=== PATIENT | female | born 1960 | race African-American/Black ===

== ENCOUNTER 2017-07-02 03:56 | Emergency (ER) | payer OTHER ==
--- NOTE | 2017-07-02 04:50 | PDOC ---
*Physical Exam - Vital Signs Last Vital Signs Temp Pulse Resp BP Pulse Ox 98.1 F 70 14 122/72 100 07/02/17 04:08 07/02/17 04:08 07/02/17 04:08 07/02/17 04:08 07/02/17 04:08 Medical Decision Making - Medical Decision Making 07/02/17 04:50 agree with care from GUSTABO Lara *DC/Admit/Observation/Transfer Diagnosis at time of Disposition: Pain, dental - Prescriptions Prescriptions: Diphenhydramine HCl [Benadryl -] 25 mg PO Q6H PRN #28 capsule PRN Reason: For Itching Oxycodone HCl/Acetaminophen [Percocet 5-325 mg Tablet] 1 tab PO Q12H PRN #8 tablet MDD 2 PRN Reason: Pain - Patient Instructions Printed Discharge Instructions: DI for Dental Pain Additional Instructions: Please take medication as prescribed. Do not drive or operate machinery while taking Percocet. Follow up with your dentist as planned. If you experience any fever, nausea, vomiting, diarrhea, or any new or worsening symptoms, please return to the ER.
--- NOTE | 2017-07-02 04:57 | PDOC ---
History of Present Illness - General Chief Complaint: Hives Stated Complaint: RASH Time Seen by Provider: 07/02/17 04:11 - History of Present Illness Initial Comments: 07/02/17 05:07 CHIEF COMPLAINT: tooth pain HISTORY OF PRESENT ILLNESS: 56 yo F with hx of aortic valve replacement, open heart surgery, and HTN presents to ED with tooth pain. Patient reports she was given Augmentin by her PCP two days ago for her tooth pain but it has provided no relief. She reports that after approximately 10 minutes using Orajel she noticed "a rash" that developed on her L shoulder. No recent travel or sick contacts. PAST MEDICAL HISTORY: Denies past medical history FAMILY HISTORY: Denies SOCIAL HISTORY: Denies tobacco, alcohol, illicit drug use. SURGICAL HISTORY: Denies ALLERGIES: No known drug allergies REVIEW OF SYSTEMS General/Constitutional: Denies fever or chills. Denies weakness, weight change. HEENT: Tooth pain to R teeth, uncertain if pain is to upper or lower molars. Denies change in vision. Denies ear pain or discharge. Denies sore throat. Cardiovascular: Denies chest pain or shortness of breath. Respiratory: Denies cough, wheezing, or hemoptysis. Gastrointestinal: Denies nausea, vomiting, diarrhea or constipation. Denies rectal bleeding. Genitourinary: Denies dysuria, frequency, or change in urination. Musculoskeletal: Denies joint or muscle swelling or pain. Denies neck or back pain. Skin and breasts: Denies rash or easy bruising. Neurologic: Denies headache, vertigo, loss of consciousness, or loss of sensation. PHYSICAL EXAM General Appearance: Well-appearing, appropriately dressed. No apparent distress. HEENT: No abscesses or dental caries visualized. EOMI, PERRLA, normal ENT inspection, normal voice, TMs normal, pharynx normal. No conjunctival pallor. No photophobia, scleral icterus. Respiratory/Chest: Lungs CTAB. No shortness of breath, chest tenderness, respiratory distress, accessory muscle use. No crackles, rales, rhonchi, stridor , wheezing, dullness Cardiovascular: RRR. S1, S2. Musculoskeletal/Extremities: Normal inspection. FROM of all extremities, normal capillary refill. Pelvis Stable. No CVA tenderness. No tenderness to extremities, pedal edema, swelling, erythema or deformity. Integumentary: Appropriate color, dry, warm. No cyanosis, erythema, jaundice or rash Neurologic: child support specialist II-XII intact. Fully oriented, alert. Appropriate mood/affect. Motor strength 5/5. No appreciable EOM palsy, facial droop or sensory deficit. Past History - Past Medical History Allergies/Adverse Reactions: Allergies Allergy/AdvReac Type Severity Reaction Status Date / Time No Known Allergies Allergy Verified 07/02/17 04:08 Home Medications: Ambulatory Orders Aspirin [Ecotrin] 81 mg PO DAILY 06/02/15 Metoprolol Tartrate [Lopressor -] 25 mg PO BID 06/02/15 Warfarin Na [Coumadin] 9.5 mg PO ASDIR 06/02/15 Warfarin Na [Coumadin] 10 mg PO ASDIR 06/02/15 Clindamycin HCl [Cleocin HCl] 300 mg PO Q8H 04/08/16 Clonazepam [Klonopin -] 0.5 mg PO BID 04/08/16 Duloxetine HCl [Cymbalta] 30 mg PO DAILY 04/08/16 Fluticasone Prop 0.05% Nasal [Flonase -] 1 - 2 spray NS DAILY 04/08/16 Loratadine [Claritin -] 10 mg PO DAILY 04/08/16 Oxycodone HCl/Acetaminophen [Percocet 5-325 mg Tablet] 1 - 2 tab PO Q6H PRN #12 tab MDD 6 04/08/16 Varenicline Tartrate [Chantix] 1 mg PO DAILY 04/08/16 Diphenhydramine HCl [Benadryl -] 25 mg PO Q6H PRN #28 capsule 07/02/17 Oxycodone HCl/Acetaminophen [Percocet 5-325 mg Tablet] 1 tab PO Q12H PRN #8 tablet MDD 2 07/02/17 Anemia: Yes Asthma: No Cancer: No Cardiac Disorders: Yes (rheumatic fever, aortic/mitral valve repla) CVA: No COPD: No CHF: No Dementia: No Diabetes: No GI Disorders: No Disorders: No HTN: No Hypercholesterolemia: No Liver Disease: No Psychiatric Problems: Yes (anxiety) Suicide Attempt (Hx): No Seizures: No Thyroid Disease: No - Surgical History Cardiac Surgery: Yes (03/29/14 aortic/mitral valve replacmement) - Immunization History Immunization Up to Date: Yes - Psycho/Social/Smoking Cessation Hx Anxiety: Yes Suicidal Ideation: No Smoking Status: Yes Smoking History: Never smoked Have you smoked in the past 12 months: Yes Number of Cigarettes Smoked Daily: 6 Information on smoking cessation initiated: No 'Breaking Loose' booklet given: 04/08/16 Hx Alcohol Use: No Drug/Substance Use Hx: No Substance Use Type: None Hx Substance Use Treatment: No *Physical Exam - Vital Signs Last Vital Signs Temp Pulse Resp BP Pulse Ox 98.1 F 70 14 122/72 100 07/02/17 04:08 07/02/17 04:08 07/02/17 04:08 07/02/17 04:08 07/02/17 04:08 Medical Decision Making - Medical Decision Making 07/02/17 05:18 56 yo F with hx of aortic valve replacement, open heart surgery, and HTN presents to ED with tooth pain. Inferior alveolar nerve block performed; patient expressed immediate relief. Benadryl, Percocet rx sent to pharm. Advised patient to f/u with dentist as planned; patient verbalized understanding and agrees to plan. *DC/Admit/Observation/Transfer Diagnosis at time of Disposition: Pain, dental - Discharge Dispostion Admit: No - Prescriptions Prescriptions: Diphenhydramine HCl [Benadryl -] 25 mg PO Q6H PRN #28 capsule PRN Reason: For Itching Oxycodone HCl/Acetaminophen [Percocet 5-325 mg Tablet] 1 tab PO Q12H PRN #8 tablet MDD 2 PRN Reason: Pain - Patient Instructions Printed Discharge Instructions: DI for Dental Pain Additional Instructions: Please take medication as prescribed. Do not drive or operate machinery while taking Percocet. Follow up with your dentist as planned. If you experience any fever, nausea, vomiting, diarrhea, or any new or worsening symptoms, please return to the ER.
[2017-07-02 05:07] VITALS: BP 122/72; PULSE 70; TEMP 98.1; BMI 24.1
== END 2017-07-02 05:52 | disposition home or self-care (01) ==
LOC: JER 03:56
DX: K08.89 Other specified disorders of teeth and supporting structures (principal); F41.9 Anxiety disorder, unspecified; D64.9 Anemia, unspecified; I51.9 Heart disease, unspecified
CPT/HCPCS: 99281-25

== ENCOUNTER 2017-07-21 15:49 | Emergency (ER) | payer OTHER ==
[2017-07-21 15:55] VITALS: BP 137/85; PULSE 74; TEMP 98.1; BMI 25.0
--- NOTE | 2017-07-21 16:37 | PDOC ---
History of Present Illness - General Chief Complaint: Revisit, Lab Variance Stated Complaint: PCP SENT/needs inr level Time Seen by Provider: 07/21/17 16:09 History Source: Patient - History of Present Illness Timing/Duration: other Past History - Past Medical History Allergies/Adverse Reactions: Allergies Allergy/AdvReac Type Severity Reaction Status Date / Time amoxicillin trihydrate Allergy Verified 07/21/17 15:52 [From Augmentin] potassium clavulanate Allergy Verified 07/21/17 15:52 [From Augmentin] Home Medications: Ambulatory Orders Aspirin [Ecotrin] 81 mg PO DAILY 06/02/15 Metoprolol Tartrate [Lopressor -] 25 mg PO BID 06/02/15 Warfarin Na [Coumadin] 9.5 mg PO ASDIR 06/02/15 Warfarin Na [Coumadin] 10 mg PO ASDIR 06/02/15 Clindamycin HCl [Cleocin HCl] 300 mg PO Q8H 04/08/16 Clonazepam [Klonopin -] 0.5 mg PO BID 04/08/16 Duloxetine HCl [Cymbalta] 30 mg PO DAILY 04/08/16 Fluticasone Prop 0.05% Nasal [Flonase -] 1 - 2 spray NS DAILY 04/08/16 Loratadine [Claritin -] 10 mg PO DAILY 04/08/16 Oxycodone HCl/Acetaminophen [Percocet 5-325 mg Tablet] 1 - 2 tab PO Q6H PRN #12 tab MDD 6 04/08/16 Varenicline Tartrate [Chantix] 1 mg PO DAILY 04/08/16 Diphenhydramine HCl [Benadryl -] 25 mg PO Q6H PRN #28 capsule 07/02/17 Oxycodone HCl/Acetaminophen [Percocet 5-325 mg Tablet] 1 tab PO Q12H PRN #8 tablet MDD 2 07/02/17 Anemia: Yes Asthma: No Cancer: No Cardiac Disorders: Yes (rheumatic fever, aortic/mitral valve repla) CVA: No COPD: No CHF: No Dementia: No Diabetes: No GI Disorders: No Disorders: No HTN: No Hypercholesterolemia: No Liver Disease: No Psychiatric Problems: Yes (anxiety) Suicide Attempt (Hx): No Seizures: No Thyroid Disease: No - Surgical History Cardiac Surgery: Yes (03/29/14 aortic/mitral valve replacmement) - Immunization History Immunization Up to Date: Yes - Psycho/Social/Smoking Cessation Hx Anxiety: No Suicidal Ideation: No Smoking Status: Yes Smoking History: Current every day smoker Have you smoked in the past 12 months: Yes Number of Cigarettes Smoked Daily: 5 Information on smoking cessation initiated: Yes 'Breaking Loose' booklet given: 07/21/17 Hx Alcohol Use: No Drug/Substance Use Hx: No Substance Use Type: None Hx Substance Use Treatment: No Review of Systems - Review of Systems Constitutional: No: Chills, Fever HEENTM: Yes: Other (no toothache today) *Physical Exam - Vital Signs Last Vital Signs Temp Pulse Resp BP Pulse Ox 98.1 F 74 18 137/85 100 07/21/17 15:53 07/21/17 15:53 07/21/17 15:53 07/21/17 15:53 07/21/17 15:53 - Physical Exam General Appearance: Yes: Appropriately Dressed. No: Apparent Distress HEENT: positive: Normal Voice Neck: positive: Supple Respiratory/Chest: negative: Respiratory Distress Integumentary: positive: Dry, Warm Neurologic: positive: Fully Oriented, Alert, Normal Mood/Affect Medical Decision Making - Medical Decision Making 07/21/17 16:13 56 yo F with hx of aortic valve replacement, open heart surgery, and HTN presents to ED for INR check. Pt was seen in ED 07/02/17 for toothache, now has dental extraction w/ dentist scheduled for and states she was referred to her PMD for INR check but states staff were unable to get blood in office today so referred pt to the ED. Of note, INR 3.5 (supposed to be 2.5-3.5 per pt) , 07/07/17 at [facility] after pt presented w/ L ankle swelling per pt. No acute complaints today See exam INR check prior to planned dental extraction No acute medical complaints -PT/INR pending 07/21/17 16:37 07/21/17 17:33 INR 3.41 which is therapeutic for pt (2.5-3.5). Pt stable for discharge to f/u with PMD and dentist tomorrow 17:38 *DC/Admit/Observation/Transfer Diagnosis at time of Disposition: Anticoagulation monitoring, INR range 2.5-3.5 - Discharge Dispostion Disposition: HOME Condition at time of disposition: Good - Referrals Referrals: Juan Cruz MD [Primary Care Provider] - - Patient Instructions Additional Instructions: Your INR was 3.41 today. Please contact your PMD tomorrow for clearance for dental procedure
[2017-07-21 16:59] LABS: INR 3.41 (0.82-1.09); PROTHROMBIN TIME (PATIENT) 38.5 SEC (9.98-11.88)
== END 2017-07-21 18:21 | disposition home or self-care (01) ==
LOC: JERFT 15:49
DX: D68.8 Other specified coagulation defects (principal); Z51.81 Encounter for therapeutic drug level monitoring; Z79.01 Long term (current) use of anticoagulants; Z95.4 Presence of other heart-valve replacement
CPT/HCPCS: 36415; 85610; 99281-25

== ENCOUNTER → 2018-02-15 | Day surgery (SDC) | payer OTHER | END | disposition home or self-care (01) | LOC: JRADUS-SUR 08:09 | PROVIDERS: ATTEND Family Medicine | PROC: 0HBT3ZX Excision of Right Breast, Percutaneous Approach, Diagnostic (ICD-10-PCS; principal; 2018-02-15) | DX: C50.911 Malignant neoplasm of unspecified site of right female breast (principal) | CPT/HCPCS: 19083; 77065-TC; 87899; 88305-TC; 88342-TC; A4648 ==

== ENCOUNTER 2018-02-18 17:34 | Emergency (ER) | payer OTHER ==
--- NOTE | 2018-02-18 17:57 | PDOC ---
Rapid Medical Evaluation Time Seen by Provider: 02/18/18 17:44 Medical Evaluation: Allergies Allergy/AdvReac Type Severity Reaction Status Date / Time amoxicillin trihydrate Allergy Verified 07/21/17 15:52 [From Augmentin] potassium clavulanate Allergy Verified 07/21/17 15:52 [From Augmentin] 02/18/18 17:55 The patient presents with a chief complaint of: Pt. had R breast bx on Thursday. States that its red and swollen, and slightly painful. Wanted the site to be checked. I have performed a brief in-person evaluation of this patient; Pertinent physical exam findings: ambulatory, in no respiratory distress, VSS I have ordered the following: Nothing The patient will proceed to the ED for further evaluation.
[2018-02-18 18:00] VITALS: BP 140/78; PULSE 92; TEMP 99.2; BMI 25.8
[2018-02-18 19:12] LABS: BASO % 0.7 % (0-2.0); EOS % 0.5 % (0-4.5); HEMATOCRIT 34.7 % (32.4-45.2); HEMOGLOBIN 11.2 GM/dL (10.7-15.3); LYMPH % 35.6 % (8-40); MCH 20.6 pg (25.7-33.7); MCHC 32.4 g/dl (32.0-36.0); MEAN CELL VOLUME 63.5 fl (80-96); MEAN PLT VOLUME 9.1 fl (7.5-11.1); MONO % 8.1 % (3.8-10.2); NEUT % 55.1 % (42.8-82.8); PLATELET COUNT 163 K/MM3 (134-434); RBC 5.46 M/mm3 (3.60-5.2); RDW 30.1 % (11.6-15.6); WHITE BLOOD COUNT 9.6 K/mm3 (4.0-10.0)
[2018-02-18 19:49] LABS: ADD RBC MORPHOLOGY YES
--- NOTE | 2018-02-18 20:22 | PDOC ---
History of Present Illness - General Chief Complaint: Pain Stated Complaint: RT BREAST SWELLING&PAIN/S/P BIOPSY Time Seen by Provider: 02/18/18 17:44 - History of Present Illness Initial Comments: 02/18/18 20:23 57 year old female with right breast swelling after breast biopsy mild tenderness at the biopsy site no drainage noted with no streaking. patient denies fever/ chills, NVD. patient diagnosed with adenocarcinoma pending surgery and oncology evaluation. pmH: heart surgery, rheumatic fever. family history of breast CA Past History - Past Medical History Allergies/Adverse Reactions: Allergies Allergy/AdvReac Type Severity Reaction Status Date / Time amoxicillin trihydrate Allergy Verified 02/18/18 17:55 [From Augmentin] potassium clavulanate Allergy Verified 02/18/18 17:55 [From Augmentin] Home Medications: Ambulatory Orders Aspirin [Ecotrin] 81 mg PO DAILY 06/02/15 Metoprolol Tartrate [Lopressor -] 25 mg PO BID 06/02/15 Warfarin Na [Coumadin] 9.5 mg PO ASDIR 06/02/15 Warfarin Na [Coumadin] 10 mg PO ASDIR 06/02/15 Clindamycin HCl [Cleocin HCl] 300 mg PO Q8H 04/08/16 Duloxetine HCl [Cymbalta] 30 mg PO DAILY 04/08/16 Fluticasone Prop 0.05% Nasal [Flonase -] 1 - 2 spray NS DAILY 04/08/16 Loratadine [Claritin -] 10 mg PO DAILY 04/08/16 Oxycodone HCl/Acetaminophen [Percocet 5-325 mg Tablet] 1 - 2 tab PO Q6H PRN #12 tab MDD 6 04/08/16 Varenicline Tartrate [Chantix] 1 mg PO DAILY 04/08/16 clonazePAM [Klonopin -] 0.5 mg PO BID 04/08/16 Diphenhydramine HCl [Benadryl -] 25 mg PO Q6H PRN #28 capsule 07/02/17 Oxycodone HCl/Acetaminophen [Percocet 5-325 mg Tablet] 1 tab PO Q12H PRN #8 tablet MDD 2 07/02/17 Anemia: Yes Asthma: No Cancer: No Cardiac Disorders: Yes (rheumatic fever, aortic/mitral valve repla) CVA: No COPD: No CHF: No Dementia: No Diabetes: No GI Disorders: No Disorders: No HTN: No Hypercholesterolemia: No Liver Disease: No Psychiatric Problems: Yes (anxiety) Seizures: No Thyroid Disease: No - Surgical History Cardiac Surgery: Yes (03/29/14 aortic/mitral valve replacmement) - Immunization History Immunization Up to Date: Yes - Suicide/Smoking/Psychosocial Hx Smoking Status: Yes Smoking History: Current every day smoker Have you smoked in the past 12 months: Yes Number of Cigarettes Smoked Daily: 4 Information on smoking cessation initiated: No 'Breaking Loose' booklet given: 07/21/17 Hx Alcohol Use: No Drug/Substance Use Hx: No Substance Use Type: None Hx Substance Use Treatment: No Review of Systems - Review of Systems Able to Perform ROS?: Yes Is the patient limited Arabic proficient: No *Physical Exam - Vital Signs Last Vital Signs Temp Pulse Resp BP Pulse Ox 99.2 F 92 H 19 140/78 99 02/18/18 17:56 02/18/18 17:56 02/18/18 17:56 02/18/18 17:56 02/18/18 17:56 - Physical Exam General Appearance: Yes: Appropriately Dressed HEENT: positive: Other (right breast multiple palpabale masses. biopsy puncture clean dry intact. slight erythema on right breast. no warmth no tenderness at the erythema site. ) ED Treatment Course - LABORATORY CBC & Chemistry Diagram: 02/18/18 18:53 02/18/18 18:53 - ADDITIONAL ORDERS Additional order review: 02/18/18 18:53 RBC 5.46 H MCV 63.5 L MCHC 32.4 RDW 30.1 H MPV 9.1 Neutrophils % 55.1 D Lymphocytes % 35.6 D Monocytes % 8.1 D Eosinophils % 0.5 Basophils % 0.7 *DC/Admit/Observation/Transfer Diagnosis at time of Disposition: Breast mass, right - Discharge Dispostion Disposition: HOME - Referrals Referrals: Juan Cruz MD [Primary Care Provider] - 24 hours - Patient Instructions Printed Discharge Instructions: DI for Breast Mass -- Uncertain Cause Additional Instructions: apply warm compress to the site. take tylenol every 6 hours as needed follow up with your doctor tomorrow as scheduled. return to the ER if you have fever, worsening redness, pus drainage, - Post Discharge Activity Forms/Work/School Notes: Back to Work
[2018-02-18 21:58] LABS: ALBUMIN 4.5 g/dl (3.4-5.0); ANION GAP 15 (8-16); BILIRUBIN,TOTAL 0.8 mg/dL (0.2-1.0); BLOOD UREA NITROGEN 10 mg/dL (7-18); CALCIUM 9.3 mg/dL (8.5-10.1); CHLORIDE 104 mmol/L (98-107); CO2 24 mmol/L (21-32); CREATININE 0.7 mg/dL (0.55-1.02); GLUCOSE,RANDOM 96 mg/dL (74-106); POTASSIUM 3.8 mmol/L (3.5-5.1); SGOT/AST 30 U/L (15-37); SGPT/ALT 48 U/L (12-78); SODIUM 143 mmol/L (136-145)
[2018-02-18 21:59] LABS: TOT PROT 8.4 g/dl (6.4-8.2)
[2018-02-18 22:00] LABS: ALK PHOS 106 U/L (45-117)
== END 2018-02-18 22:16 | disposition home or self-care (01) ==
LOC: JER 17:34
DX: N63.10 Unspecified lump in the right breast, unspecified quadrant (principal); G89.18 Other acute postprocedural pain; Z80.3 Family history of malignant neoplasm of breast; Z95.2 Presence of prosthetic heart valve; Z79.01 Long term (current) use of anticoagulants; F17.210 Nicotine dependence, cigarettes, uncomplicated
CPT/HCPCS: 36415; 80053; 85025; 99282-25

== ENCOUNTER 2019-02-04 12:16 | Emergency (ER) | payer OTHER ==
[2019-02-04 12:34] VITALS: BP 117/66; PULSE 93; TEMP 98.4; BMI 26.0
[2019-02-04 14:50] LABS: BASO % 0.3 % (0-2.0); EOS % 0.7 % (0-4.5); HEMOGLOBIN 12.3 GM/dL (10.7-15.3); MCH 20.6 pg (25.7-33.7); MCHC 32.3 g/dl (32.0-36.0); MEAN CELL VOLUME 63.7 fl (80-96); MEAN PLT VOLUME 9.7 fl (7.5-11.1); MONO % 8.9 % (3.8-10.2); NEUT % 53.1 % (42.8-82.8); PLATELET COUNT 167 K/MM3 (134-434); RBC 5.96 M/mm3 (3.60-5.2); RDW 29.6 % (11.6-15.6); WHITE BLOOD COUNT 6.2 K/mm3 (4.0-10.0)
--- NOTE | 2019-02-04 14:51 | PDOC ---
History of Present Illness - General Chief Complaint: Palpitations Stated Complaint: CHEST PALPITRATIONS - History of Present Illness Initial Comments: The pt is a 58F w/a history of mitral and atrial valve replacements 2/2 Rheumatic fever who presents for evaluation as her INR machine at home read error too high. Pt w/ palpitations this AM that have since resolved Denies chest pain or shortness of breath Hx of MVR and AVR 02/04/19 14:50 02/05/19 16:55 Past History - Past Medical History Allergies/Adverse Reactions: Allergies Allergy/AdvReac Type Severity Reaction Status Date / Time amoxicillin trihydrate Allergy Verified 02/04/19 12:32 [From Augmentin] potassium clavulanate Allergy Verified 02/04/19 12:32 [From Augmentin] Home Medications: Ambulatory Orders Aspirin [Ecotrin] 81 mg PO DAILY 06/02/15 Metoprolol Tartrate [Lopressor -] 25 mg PO BID 06/02/15 Warfarin Na [Coumadin] 9.5 mg PO ASDIR 06/02/15 Warfarin Na [Coumadin] 10 mg PO ASDIR 06/02/15 Clindamycin HCl [Cleocin HCl] 300 mg PO Q8H 04/08/16 Duloxetine HCl [Cymbalta] 30 mg PO DAILY 04/08/16 Fluticasone Prop 0.05% Nasal [Flonase -] 1 - 2 spray NS DAILY 04/08/16 Loratadine [Claritin -] 10 mg PO DAILY 04/08/16 Oxycodone HCl/Acetaminophen [Percocet 5-325 mg Tablet] 1 - 2 tab PO Q6H PRN #12 tab MDD 6 04/08/16 Varenicline Tartrate [Chantix] 1 mg PO DAILY 04/08/16 clonazePAM [Klonopin -] 0.5 mg PO BID 04/08/16 Diphenhydramine HCl [Benadryl -] 25 mg PO Q6H PRN #28 capsule 07/02/17 Oxycodone HCl/Acetaminophen [Percocet 5-325 mg Tablet] 1 tab PO Q12H PRN #8 tablet MDD 2 07/02/17 Anemia: Yes Asthma: No Cancer: No Cardiac Disorders: Yes (rheumatic fever, aortic/mitral valve repla) CVA: No COPD: No CHF: No Dementia: No Diabetes: No GI Disorders: No Disorders: No HTN: No Hypercholesterolemia: No Liver Disease: No Psychiatric Problems: Yes (anxiety) Seizures: No Thyroid Disease: No - Surgical History Cardiac Surgery: Yes (03/29/14 aortic/mitral valve replacmement) - Family Disease History Family Disease History: Other: Grandparents (breast CA grandmother, sisters and mother), Mother - Immunization History Immunization Up to Date: Yes - Suicide/Smoking/Psychosocial Hx Smoking Status: Yes Smoking History: Current some day smoker Have you smoked in the past 12 months: Yes Number of Cigarettes Smoked Daily: 2 Information on smoking cessation initiated: No 'Breaking Loose' booklet given: 07/21/17 Hx Alcohol Use: No Drug/Substance Use Hx: No Substance Use Type: None Hx Substance Use Treatment: No Review of Systems - Review of Systems Able to Perform ROS?: Yes Comments:: GENERAL/CONSTITUTIONAL: No fever or chills. No weakness HEAD, EYES, EARS, NOSE AND THROAT: No change in vision. No ear pain or discharge. No sore throat CARDIOVASCULAR: No chest pain RESPIRATORY: Denies cough, hemoptysis GASTROINTESTINAL: No vomiting, diarrhea or constipation GENITOURINARY: No dysuria, frequency, or change in urination MUSCULOSKELETAL: No joint or muscle swelling or pain. No neck or back pain SKIN: No rash NEUROLOGIC: No headache, vertigo, loss of consciousness, or change in strength/ sensation ENDOCRINE: No increased thirst. No abnormal weight change HEMATOLOGIC/LYMPHATIC: Denies history of blood clots; +Warfarin ALLERGIC/IMMUNOLOGIC: No hives or skin allergy 02/04/19 15:03 Is the patient limited Irish proficient: No *Physical Exam - Vital Signs Last Vital Signs Temp Pulse Resp BP Pulse Ox 98.4 F 93 H 18 117/66 99 02/04/19 12:32 02/04/19 12:32 02/04/19 12:32 02/04/19 12:32 02/04/19 12:32 - Physical Exam Comments: GENERAL: Awake, alert, and oriented to person/place/time, in no acute distress HEAD: No signs of trauma, normocephalic, atraumatic EYES: PERRLA, EOMI, sclera anicteric, conjunctiva clear ENT: Hearing grossly normal, nares patent, oropharynx clear without exudates. Moist mucosa LUNGS: No distress, speaks full sentences, clear to auscultation bilaterally HEART: Regular rate and rhythm, normal S1 and S2, systolic murmur appreciated, peripheral pulses normal and equal bilaterally ABDOMEN: Soft, nontender, normoactive bowel sounds. No guarding, no rebound EXTREMITIES: Normal inspection, Normal range of motion, no edema. No clubbing or cyanosis NEUROLOGICAL: Cranial nerves II through XII grossly intact. Normal speech, no focal sensorimotor deficits SKIN: Warm, Dry 02/04/19 15:00 Moderate Sedation - Procedure Monitoring Vital Signs: Procedure Monitoring Vital Signs Temperature 98.4 F 02/04/19 12:32 Pulse Rate 93 H 02/04/19 12:32 Respiratory Rate 18 02/04/19 12:32 Blood Pressure 117/66 02/04/19 12:32 O2 Sat by Pulse Oximetry (%) 99 02/04/19 12:32 ED Treatment Course - LABORATORY CBC & Chemistry Diagram: 02/04/19 14:10 02/04/19 14:10 - RADIOLOGY Radiology Studies Ordered: Category Date Time Status CHEST X-RAY PORTABLE* [RAD] Stat Radiology 02/04/19 13:57 Ordered Medical Decision Making - Medical Decision Making The pt is a 58F w/ a history of Rheumatic fever, mitral and aortic valve replacement (coumadin), and R lumpectomy s/p radiation who presented 2/2 her home INR machine reading 'error' and concern for it being elevated. She also reported intermittent palpitations since that time which have since resolved. 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 [employer], per him, her goal INR should be 2-3 Second Trop I pending 02/04/19 18:02 Second Trop I neg Plan for D/C w/ Cardiology f/u Discharge instructions and return precautions given Pt in agreement and verbalized understanding Dispo: home *DC/Admit/Observation/Transfer Diagnosis at time of Disposition: Palpitations - Discharge Dispostion Disposition: HOME Condition at time of disposition: Improved Decision to Admit order: No - Referrals Referrals: Olivia Cruz MD [Primary Care Provider] - Atul Ontiveros [Other] - Patient Instructions Printed Discharge Instructions: DI for Palpitations Additional Instructions: You were seen in the Emergency Department for concern of elevated INR and palpitations. Your INR was therapeutic at 2.23. When speaking with your Middle School Baseball Coach, your goal INR is 2-3. Review the handout provided at discharge. Follow up with your primary care doctor and Middle School [employer] Coach. Return to the Emergency Department if you develop fevers/chills, chest pain, trouble breathing , palpitations, dizziness, vision changes, worsening symptoms, or any new/ concerning symptoms. - Post Discharge Activity
[2019-02-04 15:08] LABS: ALBUMIN 4.6 g/dl (3.4-5.0); ALK PHOS 94 U/L (45-117); ANION GAP 8 MMOL/L (8-16); BILIRUBIN,TOTAL 0.9 mg/dL (0.2-1); BLOOD UREA NITROGEN 18 mg/dL (7-18); CALCIUM 9.2 mg/dL (8.5-10.1); CHLORIDE 106 mmol/L (98-107); CO2 23 mmol/L (21-32); CREATININE 0.7 mg/dL (0.55-1.3); GLUCOSE,RANDOM 98 mg/dL (74-106); POTASSIUM 3.7 mmol/L (3.5-5.1); SGOT/AST 27 U/L (15-37); SGPT/ALT 30 U/L (13-61); SODIUM 137 mmol/L (136-145); TOT PROT 8.5 g/dl (6.4-8.2)
[2019-02-04 15:27] LABS: INR 2.23 (0.83-1.09); PROTHROMBIN TIME (PATIENT) 26.5 SEC (9.7-13.0)
[2019-02-04 15:30] LABS: ACTIVATED PTT 43.7 SECONDS (25.2-36.5)
[2019-02-04 15:54] LABS: ANISOCYTOSIS 2+; MACROCYTOSIS 0; PLATELET ESTIMATE NORMAL; TARGET CELLS 2+; TEAR DROP CELLS 3+
--- NOTE | 2019-02-04 23:19 | PDOC ---
Attending Attestation - Resident Resident Name: James Johnson ( ) - ED Attending Attestation I have performed the following: I have examined & evaluated the patient, The case was reviewed & discussed with the resident, I agree w/resident's findings & plan, Exceptions are as noted - HPI HPI: 02/04/19 23:15 The patient is a 58 year old female with a significant PMH of aortic and mitral valve replacement (1 mechanical, 1 biological), on warfarin, and s/p lumpectomy and radiation who presents to the emergency department for evaluation of abnormal INR readings at home. Patient states she has an INR machine at home and read 6- error too high last night. Patient reports a few seconds of palpitations and lightheadedness en route to the ED, but states she has both of these symptoms almost everyday. The symptoms typically resolve on their own. Patient denies any symptoms while in the ER. Denies any changes in diet. Patient states she has been taking her warfarin as prescribed. The patient denies chest pain, shortness of breath, headache and dizziness. Denies fever, chills, nausea, vomit, diarrhea and constipation. Denies dysuria, frequency, urgency and hematuria. Allergies: NKA Past surgical history: lumpectomy Social history: No reported alcohol, drug or cigarette use. 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 Pt asymptomatic at this time, but reports palpitations and lightheadness for a few seconds on the way here. Vitals wnl. Labs with therapeutic INR, and trop neg x2. Pt asymptomatic during entire time in ED, requests DC home. Pt very well appearing. I discussed the physical exam findings, ancillary test results and final diagnoses with the patient. I answered all of the patient's questions. The patient was satisfied with the care received and felt comfortable with the discharge plan and treatment plan. The patient will call their primary care physician within 24 hours to arrange follow-up and will return to the Emergency Department with any new, persistent or worsening symptoms. Heart Score/ECG Review #1 02/04/19 23:23 EKG read and interpreted by me: NSR, rate 88, normal axis and intervals. No KATHLEEN or TWI.
--- NOTE | 2019-02-05 18:02 | EKG ---
Test Reason : Blood Pressure : / mmHG Vent. Rate : 088 BPM Atrial Rate : 088 BPM P-R Int : 154 ms QRS Dur : 066 ms QT Int : 378 ms P-R-T Axes : 063 046 068 degrees QTc Int : 457 ms NORMAL SINUS RHYTHM POSSIBLE LEFT ATRIAL ENLARGEMENT BORDERLINE ECG WHEN COMPARED WITH ECG OF 02-JUN-2015 02:11, NO SIGNIFICANT CHANGE WAS FOUND Confirmed by MD NOÉ, JAYLEN ([id number]) on 02/05/2019 6:02:37 PM Referred By: Confirmed By:JAYLEN UMANZOR MD
== END 2019-02-04 18:19 | disposition home or self-care (01) ==
LOC: JER 12:16
DX: R00.2 Palpitations (principal); F17.210 Nicotine dependence, cigarettes, uncomplicated; I09.9 Rheumatic heart disease, unspecified; F41.9 Anxiety disorder, unspecified; Z79.01 Long term (current) use of anticoagulants
CPT/HCPCS: 36415; 71045-TC-FY; 80053; 82550; 84484; 85025; 85610; 85730; 93005; 93010; 99283-25

== ENCOUNTER 2019-10-26 09:08 | Emergency (ER) | payer OTHER ==
[2019-10-26 09:14] VITALS: TEMP 98.5; BMI 23.7
--- NOTE | 2019-10-26 09:53 | PDOC ---
Documentation entered by Fátima Mccian SCRIBE, acting as scribe for Jennifer Cintron MD. Jennifer Cintron MD: This documentation has been prepared by the lauraibeAdán Maria, SCRIBE, under my direction and personally reviewed by me in its entirety. I confirm that the documentation accurately reflects all work, treatment, procedures, and medical decision making performed by me. History of Present Illness - General Chief Complaint: Hemoptysis Stated Complaint: BLOOD IN SPUTUM Time Seen by Provider: 10/26/19 09:18 History Source: Patient - History of Present Illness Initial Comments: 10/26/19 09:59 Patient is a 58 year old female with a significant past medical history of mitral and atrial valve replacements (1 mechanical, 1 biological, on coumadin), and Breast Cancer s/p lumpectomy and radiation, who presents to the emergency department with right upper back pain and specs of blood in sputum. Patient states the back pain began on Thursday and cough began on Thursday. She reports the cough is productive of clear and beige sputum and over the last 24 hours, she has noted flecs of blood mixed in prompting her to come to the ED today. Patient states that the pain worsens when she coughs and when she lays down. Patient states her partner had a similar cold a couple of weeks ago. As per patient, she has not been taking coumadin for the past two days due to her INR being too high 3 days ago (machine measured 4). Pt was advised by her doctor not to take the coumadin. Patient denies any recent fever or chills. Patient denies any CP or shortness of breath. Patient denies any recent travel. Denies exertional component to the back pain. Denies headache, dizziness, focal weakness/numbness, N/V/D, abd pain, urinary sxs, LE edema, calf pain. Allergies: amoxicillin, trihydrate and potassium clavulanate Past surgical history: lumpectomy Past History - Past Medical History Allergies/Adverse Reactions: Allergies Allergy/AdvReac Type Severity Reaction Status Date / Time amoxicillin trihydrate Allergy Verified 10/26/19 09:15 [From Augmentin] potassium clavulanate Allergy Verified 10/26/19 09:15 [From Augmentin] Home Medications: Ambulatory Orders Aspirin [Ecotrin] 81 mg PO DAILY 06/02/15 Metoprolol Tartrate [Lopressor -] 25 mg PO DAILY 06/02/15 Warfarin Na [Coumadin] 10 mg PO ASDIR 06/02/15 clonazePAM [Klonopin -] 0.5 mg PO BID 04/08/16 Anemia: Yes Asthma: No Cancer: No Cardiac Disorders: Yes (rheumatic fever, aortic/mitral valve repla) CVA: No COPD: No CHF: No Dementia: No Diabetes: No GI Disorders: No Disorders: No HTN: Yes Hypercholesterolemia: No Liver Disease: No Psychiatric Problems: Yes (anxiety) Seizures: No Thyroid Disease: No - Surgical History Cardiac Surgery: Yes (03/29/14 aortic/mitral valve replacmement) - Immunization History Immunization Up to Date: Yes - Psycho Social/Smoking Cessation Hx Smoking Status: Yes Smoking History: Current every day smoker Have you smoked in the past 12 months: Yes Number of Cigarettes Smoked Daily: 5 Information on smoking cessation initiated: Yes 'Breaking Loose' booklet given: 07/21/17 Hx Alcohol Use: No Drug/Substance Use Hx: No Substance Use Type: None Hx Substance Use Treatment: No Review of Systems - Review of Systems Able to Perform ROS?: Yes Comments:: 10/26/19 10:00 CONSTITUTIONAL: Absent: fever, chills, diaphoresis, generalized weakness, malaise, loss of appetite HEENT: Absent: rhinorrhea, nasal congestion, throat pain, throat swelling, difficulty swallowing, mouth swelling, ear pain, eye pain, visual Changes CARDIOVASCULAR: Absent: chest pain, syncope, palpitations, irregular heart rate , lightheadedness, peripheral edema RESPIRATORY: +cough +hemoptysis, Absent: shortness of breath, dyspnea with exertion, orthopnea, wheezing, stridor GASTROINTESTINAL:Absent: abdominal pain, abdominal distension, nausea, vomiting , diarrhea, constipation, melena, hematochezia GENITOURINARY: Absent: dysuria, frequency, urgency, hesitancy, hematuria, flank pain, genital pain MUSCULOSKELETAL: + right upper back pain, Absent: myalgia, arthralgia, joint swelling SKIN: Absent: rash, itching, pallor HEMATOLOGIC/IMMUNOLOGIC: Absent: easy bleeding, easy bruising, lymphadenopathy, frequent infections ENDOCRINE: Absent: unexplained weight gain, unexplained weight loss, heat intolerance, cold intolerance NEUROLOGIC:Absent: headache, focal weakness or paresthesias, dizziness, unsteady gait, seizure, mental status changes, bladder or bowel incontinence PSYCHIATRIC: Absent: anxiety, depression, suicidal or homicidal ideation, hallucinations. *Physical Exam - Vital Signs Last Vital Signs Temp Pulse Resp BP Pulse Ox 98.5 F 90 19 149/72 100 10/26/19 09:12 10/26/19 09:12 10/26/19 09:12 10/26/19 09:12 10/26/19 09:12 - Physical Exam 10/26/19 10:00 GENERAL: Awake, alert, and fully oriented, in no acute distress HEAD: No signs of trauma EYES: PERRLA, EOMI, sclera anicteric, conjunctiva clear ENT: Auricles normal inspection, hearing grossly normal, nares patent, oropharynx clear without exudates. Moist mucosa NECK: Normal ROM, supple, no lymphadenopathy, JVD, or masses BACK: no midline cervical, thoracic, lumbar ttp. No paraspinal ttp throughout spine. LUNGS: Breath sounds equal, clear to auscultation bilaterally. No wheezes, and no crackles HEART: Regular rate and rhythm, normal S1 and S2, no murmurs, rubs or gallops ABDOMEN: Soft, nontender, normoactive bowel sounds. No guarding, no rebound. No masses EXTREMITIES: Normal range of motion, no edema. No clubbing or cyanosis. No cords, erythema, or tenderness NEUROLOGICAL: Normal speech, cranial nerves intact, 5/5 strength in all 4 extremities, normal sensation to light touch in all 4 extremities, normal cerebellar exam, normal gait, normal reflexes and tone SKIN: Warm, Dry, normal turgor, no rashes or lesions noted. Heart Score/ECG Review #1 10/26/19 10:37 Twelve-lead EKG was performed and reviewed by me. Normal sinus rhythm, rate 78. Normal axis and intervals. No ST elevations or T wave inversions. ED Treatment Course - LABORATORY CBC & Chemistry Diagram: 10/26/19 09:33 10/26/19 09:33 - RADIOLOGY Radiology Studies Ordered: Category Date Time Status CHEST X-RAY PORTABLE* [RAD] Stat Radiology 10/26/19 09:37 Taken Medical Decision Making - Medical Decision Making 10/26/19 09:49 58 year old female with a significant PMH of aortic and mitral valve replacement (1 mechanical, 1 biological), on warfarin, and s/p lumpectomy and radiation presents to the emergency department with hemoptysis, R upper back pain, cough. Patient describes small specks of red blood mixed in with white or beige phlegm over the last day. Denies peggy bleeding when she coughs. Vitals unremarkable. Exam with clear lungs and well-appearing patient. No history of large-volume hemoptysis, pt's history of small specks of blood mixed with phlegm is reassuring. Differential includes bronchitis versus PE versus pneumonia. Plan: -labs including INR _EKG -CXR -consider CTA to r/o PE 10/26/19 14:06 INR is 1.82. Labs otherwise unremarkable. CTA obtained shows no evidence of PE, or infiltrate Incidentally shows new subcarinal LN and new opacity in R upper breast. Findings disucssed with pt, she has surveillance imaging freqiuently including mammogram, sonogram, and CT chest 2 months ago at [place]. She states the results of this imaging were normal reportedly. She has been given our CT report , and will follow up with her doctor regarding findings seen today. Symptoms likely due to viral bronchitis. WIll hold off on abx as no white count , infiltrates, fevers, or chills. Pt feeling well. She has had no hemoptysis in ED. She is eagar for DC home. She requests tylenol for her back pain prior to DC. 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 Ontiveros to discuss, but no call back. Pt reports she speaks to him regularly and will discuss plan with him today for her coumadin. I discussed the physical exam findings, ancillary test results and final diagnoses with the patient. I answered all of the patient's questions. The patient was satisfied with the care received and felt comfortable with the discharge plan and treatment plan. The patient will call their primary care physician within 24 hours to arrange follow-up and will return to the Emergency Department with any new, persistent or worsening symptoms. Discharge - Discharge Information Problems reviewed: Yes Clinical Impression/Diagnosis: Cough with hemoptysis, Back pain, Subtherapeutic international normalized ratio (INR), Viral URI Condition: Stable Disposition: HOME - Admission No - Follow up/Referral - Patient Discharge Instructions Patient Printed Discharge Instructions: DI for Hemoptysis, DI for Acute Bronchitis Additional Instructions: You were evaluated in the emergency department for back pain as well as blood in your phlegm. Your blood work was normal, other than a slightly low INR level. Make sure you talk to Dr. Ontiveros about your INR today and the plan for your coumadin, as we discussed. A CT scan of your chest showed no clots and no pneumonia, but did show new nodules in your chest compared to the last CT scan in our system. As discussed, take the provided report with you when you follow-up with your doctor to make sure these nodules are not new - especially in comparison to the recent imaging you had at [place]. Follow-up with your primary doctor and scaling machine operator within 1 week. Return to the emergency department if you have any new, worsening or concerning symptoms. It was a pleasure to take care of you today, we hope you feel better soon. Dr. Cintron - Post Discharge Activity
[2019-10-26 10:31] LABS: BASO % 0.8 % (0-2.0); EOS % 1.3 % (0-4.5); HEMATOCRIT 33.3 % (32.4-45.2); HEMOGLOBIN 10.5 GM/dL (10.7-15.3); MCH 21.1 pg (25.7-33.7); MCHC 31.7 g/dl (32.0-36.0); MEAN CELL VOLUME 66.6 fl (80-96); MEAN PLT VOLUME 9.1 fl (7.5-11.1); NEUT % 53.9 % (42.8-82.8); PLATELET COUNT 169 K/MM3 (134-434); RDW 29.1 % (11.6-15.6); WHITE BLOOD COUNT 7.2 K/mm3 (4.0-10.0)
[2019-10-26 10:49] LABS: INR 1.82 (0.83-1.09); PROTHROMBIN TIME (PATIENT) 21.6 SEC (9.7-13.0)
[2019-10-26 11:00] LABS: ALBUMIN 4.3 g/dl (3.4-5.0); BILIRUBIN,TOTAL 0.9 mg/dL (0.2-1); BLOOD UREA NITROGEN 14.4 mg/dL (7-18); CALCIUM 9.1 mg/dL (8.5-10.1); CREATININE 0.8 mg/dL (0.55-1.3); POTASSIUM 3.7 mmol/L (3.5-5.1); TOT PROT 7.9 g/dl (6.4-8.2)
[2019-10-26 12:01] LABS: ANISOCYTOSIS 3+; MACROCYTOSIS 0; PLATELET ESTIMATE NORMAL; TARGET CELLS 3+
[2019-10-26 13:10] VITALS: BP 109/74; PULSE 70
[2019-10-26] MEDS ORDERED: ACETAMINOPHEN 500 MG TABLET (FP) ONE (14:14)
[2019-10-26] MEDS ORDERED: ACETAMINOPHEN 500 MG TABLET (FP) PO ONE (14:18)
--- NOTE | 2019-10-27 10:42 | EKG ---
Test Reason : Blood Pressure : / mmHG Vent. Rate : 078 BPM Atrial Rate : 078 BPM P-R Int : 148 ms QRS Dur : 066 ms QT Int : 382 ms P-R-T Axes : 060 035 052 degrees QTc Int : 435 ms NORMAL SINUS RHYTHM POSSIBLE LEFT ATRIAL ENLARGEMENT BORDERLINE ECG WHEN COMPARED WITH ECG OF 04-FEB-2019 12:31, NO SIGNIFICANT CHANGE WAS FOUND Confirmed by SHONNA BLACKWELL MD ([id number]) on 10/27/2019 10:42:11 AM Referred By: Confirmed By:SHONNA BLACKWELL MD
== END 2019-10-26 14:38 | disposition home or self-care (01) ==
LOC: JER 09:08
DX: M54.9 Dorsalgia, unspecified (principal); J06.9 Acute upper respiratory infection, unspecified; R04.2 Hemoptysis; R05 Cough; D68.9 Coagulation defect, unspecified; Z88.8 Allergy status to other drugs, medicaments and biological substances; Z79.01 Long term (current) use of anticoagulants; Z95.2 Presence of prosthetic heart valve
CPT/HCPCS: 36415; 71045-TC-FY; 71275-TC; 80053; 84484; 85025; 85610; 85730; 86850; 86900; 86901; 93005; 93010; 99283-25; Q9967

== ENCOUNTER 2019-12-10 21:09 | Emergency (ER) | payer OTHER ==
[2019-12-10 21:21] VITALS: BP 137/69; PULSE 98; TEMP 98.8; BMI 21.7
--- NOTE | 2019-12-10 23:08 | PDOC ---
History of Present Illness - General Chief Complaint: Abnormal Lab Results (Outside) Stated Complaint: INR LEVEL IS HIGH Time Seen by Provider: 12/10/19 21:28 History Source: Patient Exam Limitations: No Limitations Past History - Travel Traveled outside of the country in the last 30 days: No Close contact w/someone who was outside of country & ill: No - Past Medical History Allergies/Adverse Reactions: Allergies Allergy/AdvReac Type Severity Reaction Status Date / Time amoxicillin trihydrate Allergy Verified 12/10/19 21:21 [From Augmentin] potassium clavulanate Allergy Verified 12/10/19 21:21 [From Augmentin] Home Medications: Ambulatory Orders Aspirin [Ecotrin] 81 mg PO DAILY 06/02/15 Metoprolol Tartrate [Lopressor -] 25 mg PO DAILY 06/02/15 Warfarin Na [Coumadin] 10 mg PO ASDIR 06/02/15 clonazePAM [Klonopin -] 0.5 mg PO BID 04/08/16 Anemia: Yes Asthma: No Cancer: Yes (breast) Cardiac Disorders: Yes (rheumatic fever, aortic/mitral valve repla) CVA: No COPD: No CHF: No Dementia: No Diabetes: No GI Disorders: No Disorders: No HTN: Yes Hypercholesterolemia: No Liver Disease: No Psychiatric Problems: Yes (anxiety) Seizures: No Thyroid Disease: No - Surgical History Cardiac Surgery: Yes (03/29/14 aortic/mitral valve replacmement) - Immunization History Immunization Up to Date: Yes - Psycho Social/Smoking Cessation Hx Smoking Status: Yes Smoking History: Never smoked Have you smoked in the past 12 months: Yes Number of Cigarettes Smoked Daily: 5 'Breaking Loose' booklet given: 07/21/17 Hx Alcohol Use: No Drug/Substance Use Hx: No Substance Use Type: None Hx Substance Use Treatment: No Review of Systems - Review of Systems Able to Perform ROS?: Yes Comments:: 12/10/19 23:09 CONSTITUTIONAL: Absent: fever, chills, diaphoresis, generalized weakness, malaise, loss of appetite HEENT: Absent: rhinorrhea, nasal congestion, throat pain, throat swelling, difficulty swallowing, mouth swelling, ear pain, eye pain, visual Changes CARDIOVASCULAR: Absent: chest pain, loss of consciousness, palpitations, irregular heart rate, peripheral edema RESPIRATORY: Absent: cough, shortness of breath, dyspnea with exertion, orthopnea, wheezing, stridor, hemoptysis GASTROINTESTINAL: Absent: abdominal pain, abdominal distension, nausea, vomiting, diarrhea, constipation, melena, hematochezia GENITOURINARY: Absent: dysuria, frequency, urgency, hesitancy, hematuria, flank pain, genital pain MUSCULOSKELETAL: Absent: myalgia, arthralgia, joint swelling SKIN: Absent: rash, itching, pallor HEMATOLOGIC/IMMUNOLOGIC: Absent: easy bleeding, easy bruising, lymphadenopathy, frequent infections ENDOCRINE: Absent: unexplained weight gain, unexplained weight loss, heat intolerance, cold intolerance NEUROLOGIC: Absent: headache, focal weakness or paresthesias, dizziness, unsteady gait, seizure, mental status changes, bladder or bowel incontinence PSYCHIATRIC: Absent: anxiety, depression, suicidal or homicidal ideation, hallucinations. Is the patient limited Ethiopian proficient: No *Physical Exam - Vital Signs Last Vital Signs Temp Pulse Resp BP Pulse Ox 98.8 F 98 H 18 137/69 97 12/10/19 21:18 12/10/19 21:18 12/10/19 21:18 12/10/19 21:18 12/10/19 21:18 - Physical Exam 12/10/19 23:09 GENERAL: Well developed, well nourished. Awake and alert. No acute distress. HEENT: Normocephalic, atraumatic. PERRLA, EOMI. No conjunctival pallor. Sclera are non- icteric. Moist mucous membranes. Oropharynx is clear. NECK: Supple. Full ROM. No JVD. Carotid pulses 2+ and symmetric, without bruits. No thyromegaly. No lymphadenopathy. CARDIOVASCULAR: Regular rate and rhythm. Midsystolic click present. No murmurs, rubs, or gallops. Distal pulses are 2+ and symmetric. PULMONARY: No evidence of respiratory distress. Lungs clear to auscultation bilaterally. No wheezing, rales or rhonchi. ABDOMINAL: Soft. Non-tender. Non-distended. No rebound or guarding. No organomegaly. Normoactive bowel sounds. MUSCULOSKELETAL Normal range of motion at all joints. No bony deformities or tenderness. No CVA tenderness. EXTREMITIES: No cyanosis. No clubbing. No edema. No calf tenderness. SKIN: Warm and dry. Normal capillary refill. No rashes. No jaundice. NEUROLOGICAL: Alert, awake, appropriate. Cranial nerves 2-12 intact. No deficits to light touch and temperature in face, upper extremities and lower extremities. No motor deficits in the in face, upper extremities and lower extremities. Normoreflexic in the upper and lower extremities. Normal speech. Toes are down- going bilaterally. Gait is normal without ataxia. PSYCHIATRIC: Cooperative. Good eye contact. Appropriate mood and affect. ED Treatment Course - LABORATORY CBC & Chemistry Diagram: 12/10/19 22:05 12/10/19 22:05 Medical Decision Making - Medical Decision Making 12/10/19 23:09 The patient is a 58-year-old female past medical history mechanical heart valve , on warfarin, presents to the ER today for elevated INR. She states with her home machine, her INR was 6.4. She last took her medication yesterday. She states she takes 9.5 mg of warfarin every day. She did not take her warfarin today as her levels were elevated. She states that she has not been eating like she usually does due to stress as her mother just . Denies bleeding, melena, headache, lightheadedness and dizziness. A/P: Elevated INR Patient is able to show me her machine with the past elevated INR reading of 6.4. We will repeat labs. If INR is under 10, will hold off on reversal as patient has mechanical heart valve. Advised patient to skip her next dose of Coumadin and follow-up with her primary care doctor. Reevaluate 12/10/19 23:50 Hemoglobin at baseline Still pending INR 12/11/19 00:13 INR now 6 <--6.4 at home Instructed pt to hold Thu and Thursday dose and take serial INR at home as she has her own machine. Pt told to call her PCP on Thursday for further management of her coumadin. DC home with strict return precautions should she have any form of bleeding. Pt understands all return precautions I discussed the physical exam findings, ancillary test results and final diagnoses with the patient. I answered all of the patient's questions. The patient was satisfied with the care received and felt comfortable with the discharge plan and treatment plan. The Patient agrees to follow up with the primary care physician/specialist within 24-72 hours. Return precautions were given. Discharge - Discharge Information Problems reviewed: Yes Clinical Impression/Diagnosis: Elevated INR Condition: Stable Disposition: HOME - Admission No - Follow up/Referral Referrals: Atul Ontiveros MD [Non Staff, Medical] - - Patient Discharge Instructions Patient Printed Discharge Instructions: DI for Warfarin Therapy Additional Instructions: Your INR was elevated today at 6. This did improve from your home reading of 6.4. Please do not take your warfarin today (Thursday) as you still have an elevated reading. Please take your INR at home this afternoon to make sure the numbers going down. You may have 1 Ensure a day to supplement your nutritional needs. Do not take more than 1 a day as this may lower your INR. Please follow-up with your primary care doctor on Thursday for further management of your Coumadin/warfarin Return to the ED immediately if you have any bleeding, dark stool or if you have any changes in your symptoms. - Post Discharge Activity
[2019-12-10 23:25] LABS: BASO % 0.3 % (0-2.0); EOS % 0.2 % (0-4.5); HEMOGLOBIN 10.1 GM/dL (10.7-15.3); LYMPH % 40.8 % (8-40); MCH 21.6 pg (25.7-33.7); MCHC 32.6 g/dl (32.0-36.0); MEAN CELL VOLUME 66.3 fl (80-96); MEAN PLT VOLUME 9.7 fl (7.5-11.1); NEUT % 49.7 % (42.8-82.8); PLATELET COUNT 216 K/MM3 (134-434); RBC 4.68 M/mm3 (3.60-5.2); RDW 28.3 % (11.6-15.6); WHITE BLOOD COUNT 5.9 K/mm3 (4.0-10.0)
[2019-12-10 23:26] LABS: PROTHROMBIN TIME (PATIENT) 73.2 SEC (9.7-13.0)
[2019-12-10 23:34] LABS: ALBUMIN 3.9 g/dl (3.4-5.0); BLOOD UREA NITROGEN 12.8 mg/dL (7-18); CALCIUM 8.6 mg/dL (8.5-10.1); CREATININE 0.6 mg/dL (0.55-1.3); POTASSIUM 3.4 mmol/L (3.5-5.1); TOT PROT 7.4 g/dl (6.4-8.2)
[2019-12-11 00:02] LABS: INR 6.09 (0.83-1.09)
[2019-12-11 03:37] LABS: ANISOCYTOSIS 3+; MACROCYTOSIS 1+; PLATELET ESTIMATE NORMAL; TARGET CELLS 1+
== END 2019-12-11 00:28 | disposition home or self-care (01) ==
LOC: JER 21:09
DX: R79.1 Abnormal coagulation profile (principal); I10 Essential (primary) hypertension; Z95.4 Presence of other heart-valve replacement; F41.9 Anxiety disorder, unspecified; D64.9 Anemia, unspecified; Z85.3 Personal history of malignant neoplasm of breast
CPT/HCPCS: 36415; 80053; 85025; 85610; 99283-25

== ENCOUNTER 2024-01-31 20:41 | Emergency (ER) | payer OTHER ==
[2024-01-31 20:51] VITALS: BP 146/48; PULSE 91; RESP 18; TEMP 99.1; BMI 21.9
[2024-01-31] MEDS ORDERED: DIPHTH,PERTUSS(ACELL),TET 0.5 ML DISP.SYRIN IM ONE (21:58)
[2024-01-31] MEDS: DIPHTH,PERTUSS(ACELL),TET 0.5 ML DISP.SYRIN IM ONE (22:01)
== END 2024-02-01 00:08 | disposition home or self-care (01) ==
LOC: JER 20:41
PROC: 3E0234Z Introduction of Serum, Toxoid and Vaccine into Muscle, Percutaneous Approach (ICD-10-PCS; principal; 2024-01-31)
DX: S61.112A Laceration without foreign body of left thumb with damage to nail, initial encounter (principal); W27.4XXA Contact with kitchen utensil, initial encounter
CPT/HCPCS: 73130-TC-LT-FY; 90471; 90715; 99283-25